=== PATIENT | female | born 1965 | race Hispanic/Latino ===

== ENCOUNTER 2018-03-30 22:30 | Emergency (ER) | payer OTHER, MEDICAID, SELFPAY ==
[2018-03-30 22:37] VITALS: BP 158/96; PULSE 87; RESP 20; TEMP 36.4; O2SAT 98
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
[2018-03-30 23:20] VITALS: BP 158/96; PULSE 87; RESP 20; TEMP 36.4; O2SAT 98
--- NOTE | 2018-03-30 23:43 | DI.CT.S_ITS ---
PROCEDURE: CT HEAD/BRAIN WO CON INDICATIONS: severe, sudden headache TECHNIQUE: Noncontrast 4.5 mm thick angled axial sections acquired from the foramen magnum to the vertex, with coronal and sagittal reformats. For radiation dose reduction, the following was used: automated exposure control, adjustment of mA and/or kV according to patient size. COMPARISON: None. FINDINGS: Image quality: Excellent. CSF spaces: Basal cisterns are patent. No extra-axial fluid collections. Ventricles are normal in size and shape. Brain: No midline shift. No intracranial masses or hemorrhage. Mccarthy-white matter interface is normal. Skull and face: Calvarium and visualized facial bones are intact, without suspicious lesions. Sinuses: Visualized sinuses and mastoids are clear. IMPRESSION: No acute intracranial disease process. Dictated by: Tali Taylor MD, PhD on 03/31/2018 at 8:21 Approved by: Tali Taylor MD, PhD on 03/31/2018 at 8:25
[2018-03-30] MEDS: KETOROLAC 60 MG/2 ML VIAL IM (23:50)
[2018-03-30] MEDS: LORazepam 2 MG/ML SYRINGE 1 MG IM (23:51)
[2018-03-31 01:27] VITALS: BP 133/79; PULSE 73; RESP 15; O2SAT 98
== END 2018-03-31 01:28 | disposition home or self-care (01) ==
PROVIDERS: Emergency Provider Emergency Medicine
DX: F41.9 Anxiety disorder, unspecified (principal); R51 Headache
CPT/HCPCS: 70450; 96372; 99282; 99284; J1885; J2060

== ENCOUNTER 2018-04-28 23:12 | Emergency (ER) | payer OTHER, MEDICAID, SELFPAY ==
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
[2018-04-28 23:22] VITALS: BP 178/104; PULSE 86; RESP 16; TEMP 36.2; O2SAT 100; BMI 35.2
[2018-04-28 23:26] VITALS: BP 178/104; PULSE 84; TEMP 36.7; O2SAT 99
[2018-04-29] MEDS: KETOROLAC 60 MG/2 ML VIAL 30 MG IM (01:17)
[2018-04-29] MEDS: TET,DIPH,PERTUSS(ACELL),VAC/PF 0.5 ML SYRINGE IM (01:18)
[2018-04-29 01:55] VITALS: BP 159/89; PULSE 77; RESP 16; O2SAT 97
== END 2018-04-29 02:06 | disposition home or self-care (01) ==
PROVIDERS: Emergency Provider Emergency Medicine
DX: S80.02XA Contusion of left knee, initial encounter (principal); S41.112A Laceration without foreign body of left upper arm, initial encounter; V43.52XA Car driver injured in collision with other type car in traffic accident, initial encounter
CPT/HCPCS: 12001; 70450; 71045; 72125; 72170; 73562; 90471; 96372; 99283; 99284; 90715; J1885

== ENCOUNTER 2020-07-30 05:00 | Emergency (ER) | payer OTHER, MEDICAID, SELFPAY ==
[2020-07-30 05:22] VITALS: BP 151/77; PULSE 86; RESP 16; TEMP 36.7; O2SAT 97; BMI 36.1
--- NOTE | 2020-07-30 05:50 | ED_ITS ---
HPI - Female Genitourinary General Chief complaint: Urogenital-Female Stated complaint: ear infection / blood in urine Time Seen by Provider: 07/30/20 05:19 Source: patient and family Mode of arrival: Ambulatory Limitations: no limitations History of Present Illness HPI Narrative: 55-year-old female nonsmoker with history of hypertension presents with her daughter and a chief complaint of a day and a half, dysuria, frequency, urgency and hematuria. She denies systemic findings such as fever, shaking chills nor nausea, vomiting or back pain. He has had no runny nose, sore throat or cough. Denies any vaginal bleeding or discharge. She has had urinary tract the past and states this feels similar. She is otherwise well and free light MD Complaint: dysuria and UTI Onset (ago): minute(s) Duration: constant Relieving factors: none Exacerbating factors: urination Urinary symptoms: Difficulty Urinating, Dysuria, Frequency, Hematuria and Urgency Patient : No Related Data Home Medications Medication Instructions Recorded Confirmed atenolol 50 mg PO DAILY #0 05/01/16 03/30/18 conjugated estrogens [Premarin] Unknown #0 05/01/16 hydrochlorothiazide 12.5 mg PO QDAY #0 cap 05/01/16 03/30/18 Previous Rx's Medication Instructions Recorded ciprofloxacin HCl 500 mg PO BID #10 tab 07/30/20 Allergies Allergy/AdvReac Type Severity Reaction Status Date / Time No Known Drug Allergies Allergy Verified 03/30/18 22:39 Review of Systems Review of Systems ROS Unobtainable: All systems reviewed & are unremarkable except as noted in HPI and below Constitutional Constitutional: Denies chills, Denies fever(s), Denies lethargy and Denies weakness ENT Ears, Nose, Mouth, and Throat: Denies vertigo Cardiovascular Cardiovascular: Denies chest pain Respiratory Respiratory: Denies cough Gastrointestinal Gastrointestinal: Denies abdominal pain, Denies nausea and Denies vomiting Genitourinary Genitourinary: Reports dysuria and Reports urinary urgency Genitourinary: Reports difficulty voiding, Reports dysuria and Reports urinary urgency Neurologic Neurologic: Denies vertigo and Denies weakness Patient History Medical History HTN (hypertension) Surgical History No pertinent past surgical history alcohol intake frequency: holidays/special occasions only Substance Use Type: does not use Exam Narrative Exam Narrative: GEN: AOx3 and in mild distress EYES: Pupils are equal, round, and reactive to light and accommodation. Extraoccular muscles are intact bilaterally. There is no subconjunctival he morrhage or exudate. CHEST: Lungs are clear to auscultation bilaterally and free of wheezes, rales, or rhonchi. Heart rate is regular rhythm, there are no murmurs, clicks, rubs, or gallops. There is no chest wall tenderness. ABD: Abdomen is soft and nontender. There is no guarding or rebound. Bowel sounds are normal in all 4 quadrants. There is no mass or organomegaly. EXT: Full painless ROM of all extremities with no loss of sensation or strength. BACK: No CVA tenderness SKIN: Warm, pink, and dry. No erythema or rash Initial Vital Signs Initial Vital Signs: Vital Signs Temperature 98.1 F 07/30/20 05:22 Pulse Rate 86 07/30/20 05:22 Respiratory Rate 16 07/30/20 05:22 Blood Pressure 151/77 H 07/30/20 05:22 Pulse Oximetry 97 07/30/20 05:22 Course Orders Ordered: ED Orders 07/30/20 05:21 Urinalysis and Microscopic Stat Urine Culture Stat Discontinued Medications Ciprofloxacin (Ciprofloxacin 500 Mg Tablet) 500 mg PO NOW ONE Stop: 07/30/20 06:11 Last Admin: 07/30/20 06:14 Dose: 500 mg Documented by: WILLIAM Phenazopyridine HCl (Phenazopyridine 100 Mg Prepack) 1 bottle [facility] ONE Stop: 07/30/20 05:59 Last Admin: 07/30/20 06:15 Dose: 1 bottle Documented by: WILLIAM Vital Signs Vital signs: Vital Signs - 8 hr 07/30/20 05:22 Temperature 98.1 F Pulse Rate 86 Respiratory Rate 16 Blood Pressure 151/77 H Pulse Oximetry 97 MDM - Female Genitourinary Lab Data Labs: Lab Results 07/30/20 Range/Units 05:21 Urine Color Red Urine Appearance Cloudy Urine pH 5.5 (4.5-8.0) Ur Specific [place] 1.015 (1.000-1.035) Urine Protein 2+ H (Negative) Urine Glucose (UA) Negative (Negative) g/dL Urine Ketones Trace H (NEGATIVE) Urine Occult Blood 3+ H (Negative) Urine Nitrate Negative (Negative) Urine Bilirubin Negative (NEGATIVE) Urine Urobilinogen 0.2 (0.2) E.U./dL Ur Leukocyte Esterase 3+ H (NEGATIVE) Urine RBC >100/hpf H (0-5/HPF) Urine WBC 30-100/hpf H (0-5/HPF) Urine Bacteria Moderate (10-30) H (None) Ur Culture Indicated? Specimen cultured Discharge Plan Departure Patient Disposition: Home Clinical Impression: Urinary tract infection Qualifiers: Urinary tract infection type: acute cystitis Hematuria presence: with hematuria Qualified Code(s): N30.01 - Acute cystitis with hematuria Instructions: DI for Urinary Tract Infection (UTI) Activity Restrictions/Additional Instructions: *You have been diagnosed with [ urine infection ] *What to do: *Take medications as directed *Follow up with your primary care provider in 2-3 days, call for an appointment. Let them know you were seen in the Emergency Department and that we ask that you be seen in follow up *Return to ER if you should have any new, worsening or concerning symptoms, such as [ ] Prescriptions: New ciprofloxacin HCl 500 mg tablet 500 mg PO BID Qty: 10 RF: 0 No Action atenolol 25 MG tablet 50 mg PO DAILY Qty: 0 RF: 0 hydrochlorothiazide 12.5 MG capsule 12.5 mg PO QDAY Qty: 0 RF: 0 conjugated estrogens [Premarin] 0.9 MG tablet Unknown Qty: 0 RF: 0 Referrals: Oneyda Andrade DO [Primary Care Provider] -
[2020-07-30] MEDS: CIPROFLOXACIN 500 MG TABLET PO (06:14)
[2020-07-30] MEDS: PHENAZOPYRIDINE 100 MG PREPACK 1 BOTTLE MISC (06:15)
[2020-07-30 06:33] LABS: Appearance Urine UA CLOUDY; Bilirubin Urine UA NEGATIVE (NEGATIVE); Color Urine UA RED; Glucose Urine UA NEGATIVE (Negative); Ketones Urine UA TRACE (NEGATIVE); Leukocyte Esterase Urine UA 3+ (NEGATIVE); Nitrite Urine UA NEGATIVE (Negative); Occult Blood Urine UA 3+ (Negative); Protein Urine UA 2+ (Negative); Specific Gravity Urine UA 1.015 (1.000-1.035); Urobilinogen Urine UA 0.2 E.U./dL (0.2)
[2020-07-30 06:37] LABS: pH Urine UA 5.5 (4.5-8.0)
[2020-07-30 06:49] LABS: Bacteria Urine Moderate (10-30); Culture Indicated Urine Specimen Cultured; RBC Urine >100/HPF (0-5/HPF); WBC Urine 30-100/HPF (0-5/HPF)
== END 2020-07-30 06:21 | disposition home or self-care (01) ==
PROVIDERS: Emergency Provider Emergency Medicine; PCP Family Medicine
DX: N30.01 Acute cystitis with hematuria (principal); I10 Essential (primary) hypertension
CPT/HCPCS: 81001; 87077; 87086; 87186; 99281; 99283

== ENCOUNTER 2024-01-01 17:23 | Emergency (ER) | payer OTHER, MEDICAID, SELFPAY ==
[2024-01-01] VITALS (14 sets, daily range): BP systolic 145–180; BP diastolic 68–93; PULSE 73–99; RESP 12–32; TEMP 36.9; O2SAT 94–98; BMI 38.0
--- NOTE | 2024-01-01 17:28 | DI.RAD.S_ITS ---
PROCEDURE: XR CHEST 1V INDICATIONS: chest pain TECHNIQUE: One view of the chest was acquired. COMPARISON: [facility], CR, XR CHEST 1V, 04/28/2018, 23:30. FINDINGS: Surgical changes and devices: None. Lungs and pleura: Lungs are clear. No pleural effusions or pneumothorax. Mediastinum: Mediastinal contours appear normal. Heart size is normal. Bones and chest wall: No suspicious bony lesions. Overlying soft tissues appear unremarkable. IMPRESSION: No acute cardiopulmonary abnormality is seen. Approved by: Mandi Justice M.D.,Ph.D. on 01/01/2024 at 17:54
[2024-01-01 17:50] LABS: Add Manual Diff / Slide Review NO; Basophils Absolute Auto 100 /uL (0-100); Basophils Percent Auto 0.6 % (0-2); Eosinophils Absolute Auto 200 /uL (0-450); Eosinophils Percent Auto 1.8 % (2-4); Hematocrit 41.1 % (36-46); Hemoglobin 14.2 g/dL (12.0-16.0); Lymphocytes Absolute Auto 3400 /uL (1100-4500); Lymphocytes Percent Auto 38.2 % (25-40); Mean Corpuscular HGB Conc 34.4 % (30-36); Mean Corpuscular Hemoglobin 32.1 PG (26-34); Mean Corpuscular Volume 93.2 fL (80-100); Monocytes Absolute Auto 600 /uL (0-900); Monocytes Percent Auto 6.6 % (3-14); Neutrophils Absolute Auto 4700 /uL (1500-7000); Neutrophils Percent Auto 52.8 % (50-75); Platelet Count 341 X10^3/uL (150-400); Red Blood Cell Count 4.41 X10^6/uL (4.0-5.2); Red Cell Distribution Width 13.2 % (11.6-14.8)
[2024-01-01 17:56] LABS: Prothrombin Time 11.3 SECONDS (9.4-12.5)
[2024-01-01 17:59] LABS: PTT Partial Thromboplastin Tim 35 SECONDS (25.1-36.5)
[2024-01-01 18:01] LABS: Alanine Aminotransferase 37 IU/L (<35); Albumin 4.9 g/dL (3.5-5.0); Albumin Globulin Ratio 1.4 (1.0-2.8); Alkaline Phosphatase 119 U/L (38-126); Aspartate Aminotransferase 47 IU/L (14-36); BUN Creatinine Ratio 27.3 (6-22); Bilirubin Total 0.7 mg/dL (0.2-1.3); Blood Urea Nitrogen 15 mg/dL (7-17); Calcium 9.7 mg/dL (8.4-10.2); Carbon Dioxide 28 mmol/L (22-32); Chloride 104 mmol/L (98-107); Creatine Kinase 522 U/L (30-135); Estimated Glomerular Filt Rate > 60 mL/min (>60); Globulin 3.4 g/dL (1.7-4.1); Glucose 111 mg/dL (70-100); HEMOLYSIS < 15 (0-50); Lipase 84 U/L (23-300); Potassium 3.1 mmol/L (3.4-5.1); Sodium 141 mmol/L (137-145); Total Protein 8.3 g/dL (6.3-8.2)
[2024-01-01 18:12] LABS: Troponin I < 0.012 ng/mL (0.01-0.034)
[2024-01-01 19:08] LABS: Appearance Urine UA Slightly Cloudy; Color Urine UA Yellow; Glucose Urine UA NEGATIVE (Negative); Ketones Urine UA NEGATIVE (NEGATIVE); Occult Blood Urine UA 1+ (Negative); Protein Urine UA Negative (Negative); Specific Gravity Urine UA 1.015 (1.000-1.035); pH Urine UA 7.5 (4.5-8.0)
[2024-01-01 19:11] LABS: Bilirubin Urine UA Negative (NEGATIVE); Leukocyte Esterase Urine UA 2+ (NEGATIVE); Nitrite Urine UA POSITIVE (Negative); Urine Volume 10mL (spun); Urobilinogen Urine UA 0.2 E.U./dL (0.2)
[2024-01-01 19:16] LABS: Amorphous Sediment Urine 1+; Bacteria Urine Many (>30); Culture Indicated Urine Specimen Cultured; RBC Urine None Seen (0-5/HPF); Squamous Epithelial Cell Urine None Seen (0-5/HPF); WBC Urine 0-1/HPF (0-5/HPF)
--- NOTE | 2024-01-01 22:14 | PC.NURSE ---
Patient states she was at work and had just cleaned up her mother after she had a bm. She felt flushed and like her heart was racing; had a pressure in her chest and remembers telling co-workers that she wasn't feeling well and then the next thing she remembers is waking up to the paramedics. When roomed in ER she was A&Ox4, denies chest pain. VSS, slightly hypertensive.
--- NOTE | 2024-01-01 22:39 | ED_ITS ---
HPI - General Adult General Chief complaint: Syncope Stated complaint: Near Syncopal episode Time Seen by Provider: 01/01/24 22:36 Source: patient and EMS Mode of arrival: EMS Limitations: no limitations History of Present Illness HPI narrative: This is a 58-year-old female history of hypertension, gout who presents with complaint of palpitations fast heart rate chest pressure your syncopal episode. States she did not completely lose consciousness but was sort of in and out lasted about 10 minutes. She felt short of breath, she felt lightheaded. She would have any nausea or vomiting, no new swelling in her extremities, she has not had a little bit of dysuria urgency frequency. She has no other major bowel issues. When EMS arrived heart rate was 180 when she went to transfer to the [facility] she appeared to cardiovert and go into the 70s. I do not have their telemetry strip available the by report. Patient notes she has had a ZIO patch for 14 days in the past, she had a heart catheterization when she was in [place] she states she was told she went into an arrhythmia almost passed during her heart catheterization. She did not have any stents placed. She would 24 hour monitoring immediately thereafter and did not have any additional episodes. She is unsure what the arrhythmia was. She has had occasional episodes of palpitations on and off but usually very brief. He was originally change your blood pressure medicine from atenolol done lisinopril to amlodipine 1 or 2 months ago. They increased her amlodipine from 5-10 mg. She takes allopurinol. No anticoagulants, no diuretics. She has no longer on hydrochlorothiazide. She feels much improved she states her symptoms resolved after the change in her heart rate. She follows with Oneyda Keen as her primary care provider. She has not seen a learning consultant here in [place]. Related Data Home Medications Medication Instructions Recorded Confirmed atenolol 25 mg tablet 50 mg PO DAILY ##0 05/01/16 03/30/18 conjugated estrogens 0.9 mg tablet Unknown ##0 05/01/16 (Premarin) hydrochlorothiazide 12.5 mg capsule 12.5 mg PO QDAY #0 caps 05/01/16 03/30/18 Previous Rx's Medication Instructions Recorded ciprofloxacin HCl 500 mg tablet 500 mg PO BID #10 tabs 07/30/20 mupirocin 2 % topical ointment 1 applic topical TID #22 grams 09/03/22 cephalexin 500 mg capsule 500 mg PO BID #10 caps 01/01/24 Allergies Allergy/AdvReac Type Severity Reaction Status Date / Time Sulfa (Sulfonamide Allergy Verified 01/01/24 18:28 Antibiotics) Review of Systems Review of Systems ROS Unobtainable: All systems reviewed & are unremarkable except as noted in HPI and below Patient History Medical History HTN (hypertension) Surgical History No pertinent past surgical history Social History Smoking Status: Never smoker Smoking Status: Never smoker alcohol intake frequency: holidays/special occasions only Substance Use Type: does not use Exam Narrative Exam Narrative: GENERAL: Alert and oriented x three, female no acute distress HEENT: Head normocephalic, atraumatic, EOMI, pupils reactive, face symmetric, moist mucous membranes NECK: Supple, full range of motion CARDIOVASCULAR: Regular rate and rhythm without murmurs, rubs or gallops. No JVD. No edema bilateral lower extremities. RESPIRATORY: Breath sounds equal bilaterally, no wheezes rales or rhonchi. No tachypnea or accessory muscle use. ABDOMEN: Soft, nontender. Normoactive bowel sounds all 4 quadrants. No guarding or rebound, rigidity, no mass : No CVA tenderness EXTREMITIES: Normal range of motion, no clubbing or edema. Neurovascularly intact NEUROLOGICAL: Cranial nerves II through XII grossly intact. Moving all extremities SKIN: Warm, dry, no petechiae, no rashes or lesions. Initial Vital Signs Initial Vital Signs: Vital Signs Temperature 98.5 F 01/01/24 17:44 Pulse Rate 90 01/01/24 17:44 Respiratory Rate 18 01/01/24 17:44 Blood Pressure 145/68 H 01/01/24 17:44 Pulse Oximetry 97 01/01/24 17:44 Oxygen Delivery Method Room Air 01/01/24 17:44 Course Orders Ordered: Discontinued Medications Aspirin (Aspirin 81 Mg Chew Tab) 324 mg PO NOW ONE Stop: 01/01/24 17:29 Last Admin: 01/01/24 22:12 Dose: Not Given Documented By: ES Potassium Chloride (Potassium Chloride 20 Meq Tab) 40 meq PO NOW ONE Stop: 01/01/24 22:42 Last Admin: 01/01/24 22:56 Dose: 40 meq Documented By: YANELI Vital Signs Vital signs: Vital Signs - 8 hr 01/01/24 20:15 01/01/24 20:30 01/01/24 20:45 Pulse Rate 79 75 76 Respiratory Rate 32 H 19 15 Blood Pressure 150/85 H 146/80 H 154/82 H Pulse Oximetry 98 96 94 Oxygen Delivery Method Room Air Room Air Room Air 01/01/24 21:00 01/01/24 21:15 01/01/24 22:07 Pulse Rate 78 77 99 H Respiratory Rate 21 22 Blood Pressure 147/75 H 166/79 H Pulse Oximetry 97 96 Oxygen Delivery Method Room Air Room Air 01/01/24 22:09 01/01/24 22:09 01/01/24 22:30 Pulse Rate 84 Respiratory Rate 19 Blood Pressure 180/93 H 149/72 H Pulse Oximetry 98 Oxygen Delivery Method Room Air 01/01/24 22:30 01/01/24 23:00 01/01/24 23:00 Pulse Rate 73 82 Respiratory Rate 12 31 H Blood Pressure 162/87 H Pulse Oximetry 96 96 Oxygen Delivery Method Room Air 01/01/24 23:30 01/01/24 23:30 Pulse Rate 73 Respiratory Rate 18 Blood Pressure 164/81 H Pulse Oximetry 97 Oxygen Delivery Method Medical Decision Making Lab Data 01/01/24 17:30 01/01/24 17:30 Labs: Lab Results 01/01/24 01/01/24 Range/Units 17:30 18:20 WBC 9.0 (4.5-11.0) X10^3/uL RBC 4.41 (4.0-5.2) X10^6/uL Hgb 14.2 (12.0-16.0) g/dL Hct 41.1 (36-46) % MCV 93.2 (80-100) fL MCH 32.1 (26-34) PG MCHC 34.4 (30-36) % RDW 13.2 (11.6-14.8) % Plt Count 341 (150-400) X10^3/uL Neut % (Auto) 52.8 (50-75) % Lymph % (Auto) 38.2 (25-40) % [place] % (Auto) 6.6 (3-14) % Eos % (Auto) 1.8 L (2-4) % Baso % (Auto) 0.6 (0-2) % Neut # (Auto) 4700 (2667-5967) /uL Lymph # (Auto) 3400 (5111-0046) /uL [place] # (Auto) 600 (0-900) /uL Eos # (Auto) 200 (0-450) /uL Baso # (Auto) 100 (0-100) /uL PT 11.3 (9.4-12.5) SECONDS INR 1.0 (0.9-1.3) APTT 35 (25.1-36.5) SECONDS Sodium 141 (137-145) mmol/L Potassium 3.1 L (3.4-5.1) mmol/L Chloride 104 (98-107) mmol/L Carbon Dioxide 28 (22-32) mmol/L BUN 15 (7-17) mg/dL Creatinine 0.55 (0.52-1.04) mg/dL Estimated GFR > 60 (>60) mL/min BUN/Creatinine Ratio 27.3 H (6-22) Glucose 111 H (70-100) mg/dL Calcium 9.7 (8.4-10.2) mg/dL Magnesium 2.0 (1.6-2.3) mg/dL Total Bilirubin 0.7 (0.2-1.3) mg/dL AST 47 H (14-36) IU/L ALT 37 H (<35) IU/L Alkaline Phosphatase 119 (38-126) U/L Total Creatine Kinase 522 H (30-135) U/L Troponin I < 0.012 (0.01-0.034) ng/mL Total Protein 8.3 H (6.3-8.2) g/dL Albumin 4.9 (3.5-5.0) g/dL Globulin 3.4 (1.7-4.1) g/dL Albumin/Globulin Ratio 1.4 (1.0-2.8) Lipase 84 (23-300) U/L Urine Color Yellow Urine Appearance Slightly cloudy Urine pH 7.5 (4.5-8.0) Ur Specific [place] 1.015 (1.000-1.035) Urine Protein Negative (Negative) Urine Glucose (UA) Negative (Negative) g/dL Urine Ketones Negative (NEGATIVE) Urine Occult Blood 1+ H (Negative) Urine Nitrate Positive H (Negative) Urine Bilirubin Negative (NEGATIVE) Urine Urobilinogen 0.2 (0.2) E.U./dL Ur Leukocyte Esterase 2+ H (NEGATIVE) Urine RBC None seen (0-5/HPF) Urine WBC 0-1/hpf (0-5/HPF) Ur Squamous Epith Cells None seen (0-5/HPF) Amorphous Sediment 1+ Urine Bacteria Many (>30) H (None) Ur Culture Indicated? Specimen cultured Vol Urine Centrifuged 10ml (spun) Imaging Data Chest x-ray: Radiologist's Impression: [address] [id number] XRay Report Signed Patient: Mini Cruz MR#: [id number] : 1965 Acct:[id number] Age/Sex: 58 / F Date of Service: 01/01/24 Loc: ED Accession Number: [id number] Procedure: XR chest 1V Ordering Provider: Matheus Bowman MD PROCEDURE: XR CHEST 1V INDICATIONS: chest pain TECHNIQUE: One view of the chest was acquired. COMPARISON: [facility], , XR CHEST 1V, 04/28/2018, 23:30. FINDINGS: Surgical changes and devices: None. Lungs and pleura: Lungs are clear. No pleural effusions or pneumothorax. Mediastinum: Mediastinal contours appear normal. Heart size is normal. Bones and chest wall: No suspicious bony lesions. Overlying soft tissues appear unremarkable. IMPRESSION: No acute cardiopulmonary abnormality is seen. Approved by: Mandi Justice M.D.,Ph.D. on 01/01/2024 at 17:54 ECG Data Attestation: I personally reviewed and interpreted this ECG as follows: Prior ECG tracings: available for review Interpretation: Sinus rhythm rate of 94 CT 168 QRS 82 QTC of 470. No acute ST elevation, nonspecific change. Patient has a prior from 05/01/2016 which overall appears similar. [facility] Narrative Medical decision making narrative: 58-year-old female who per EMS report likely had a cardiac arrhythmia causing your syncope, patient has had prior episodes has had some workup [place] 14 [place] She was having a workup in [place] had a heart catheterization did have a cardiac arrhythmia during that was monitored for 24 hours did not have other episodes. She is not normally on any anticoagulation she is on amlodipine daily. Patient's workup today white count 9 hemoglobin is 14 platelets are 341, potassium slightly low at 3.1 could be exacerbating potential arrhythmia, this was replaced orally. Sodium is 141 chloride 104 CO2 28 BUN 15 creatinine 0.51 11 glucose AST 47 ALT 37 CK is 522, troponin is negative at less than 0.012 patient does have a nitrate positive urine she is having symptoms we will treat. Chest x-ray is negative, EKG does not show any acute changes appears similar 2016. Suspect atrial arrhythmia. We will have patient follow up for additional workup. Return precautions. Discharge Plan Departure Patient Disposition: Home Clinical Impression: Hypokalemia, Near syncope Activity Restrictions/Additional Instructions: Follow up with your physician for recheck and/or cardiology. I suspect you had an arrhythmia such as supraventricular tachycardia that cause your symptoms today. EMS noted her heart rate was quite fast but you cardioverted before they were able to capture the rhythm. Talk with your physician about being re-evaluated with a Holter monitor or ZIO patch, they may repeat an echo if 1 has not been done recently. Your potassium was slightly low this makes your more likely to have cardiac arrhythmias. Please follow up with your physician to make sure your electrolytes are rechecked. Your urine also shows some signs of infection, prescriptions sent to [facility]. Please return for fevers, new or worsening chest pain, shortness of breath recurrent palpitations or fast heart rate, current lightheadedness or passing out, persistent vomiting, new swelling of extremities or other new or concerning changes. Prescriptions: New cephalexin 500 mg capsule 500 mg PO BID Qty: 10 0RF No Action atenolol 25 MG tablet 50 mg PO DAILY Qty: 0 hydrochlorothiazide 12.5 MG capsule 12.5 mg PO QDAY Qty: 0 conjugated estrogens [Premarin] 0.9 MG tablet Unknown Qty: 0 mupirocin 2 % ointment 1 applic topical TID Qty: 22 1RF Rx Instructions: please apply 1 gram topically 3 times a day on hand for duration of healing ciprofloxacin HCl 500 mg tablet 500 mg PO BID Qty: 10 0RF Referrals: Oneyda Arzola DO [Primary Care Provider] - Ameriac Scott MD [Physician] - Stand Alone Forms: Patient Portal/API
[2024-01-01] MEDS: POTASSIUM CHLORIDE 20 MEQ TAB 40 MEQ PO (22:56)
== END 2024-01-01 23:37 | disposition home or self-care (01) ==
PROVIDERS: Emergency Medicine; Emergency Provider Emergency Medicine; PCP Family Medicine
DX: E87.6 Hypokalemia (principal); R55 Syncope and collapse
CPT/HCPCS: 36415; 71045; 80053; 81001; 82550; 83690; 83735; 84484; 85025; 85610; 85730; 87077; 87086; 87186; 93005; 99284